=== PATIENT | male | born 1960 | race Caucasian/White ===

== ENCOUNTER 2016-06-26 11:39 | Emergency (ER) | payer MEDICARE, BC ==
[2016-06-26 13:22] VITALS: BP 102/64
--- NOTE | 2016-06-26 15:10 | UC ---
Respiratory Complaint HPI - HPI Summary HPI Summary: cough for over a week. History of lung CA in 2013, XRT and chemotherapy completed, he is in remission. For past few days, pain over left kidney. "I think it's a urinary tract infection." No fever or vomiting. Hurts to touch lumbar area, also to cough. No inc frequency of urination. Taking fluids and food well. Cough keeps him awake, dry and hacking. His MD put him on an antibiotic (?BIaxin? not sure) and a steroid taper - History of Current Complaint Chief Complaint: UCGeneralIllness Stated Complaint: FLANK PAIN,URINARY PAIN,COUGH Time Seen by Provider: 06/26/16 14:58 Hx Obtained From: Patient Onset/Duration: Gradual Onset, Lasting Weeks - 1 Timing: Constant Severity Initially: Mild Severity Currently: Moderate Character: Cough: Nonproductive Aggravating Factors: Exertion, Recumbent Position Alleviating Factors: Nothing Associated Signs And Symptoms: Positive: Dyspnea - on chronic home O2, Wheezing - off and on, chronic from lung CA and COPD, URI, Nasal Congestion. Negative: Fever - Risk Factors Pulmonary Embolism Risk Factors: Malignancy - history Cardiac Risk Factors: Hypertension, CAD Pseudomonas Risk Factors: Negative Tuberculosis Risk Factors: Negative - Allergies/Home Medications Allergies/Adverse Reactions: Allergies Allergy/AdvReac Type Severity Reaction Status Date / Time No Known Allergies Allergy Verified 06/26/16 13:27 Home Medications: Home Medications Albuterol 2.5MG/3ML (0.083%)* [Ventolin 2.5 MG/3 ML NEB.TANNER*] 2.5 mg INH Q6H PRN 06/26/16 [History Confirmed 06/26/16] Albuterol HFA INHALER* [Ventolin HFA Inhaler*] 2 puff INH Q6H PRN 06/26/16 [ History Confirmed 06/26/16] Aspirin EC Low Dose* [Ecotrin EC Low Dose*] 81 mg PO DAILY 06/26/16 [History Confirmed 06/26/16] Atorvastatin* [Lipitor 80 MG*] 80 mg PO 1700 06/26/16 [History Confirmed ] Clopidogrel TAB* [Plavix TAB*] 75 mg PO DAILY 06/26/16 [History Confirmed ] Docusate CAP* [Colace Cap*] 100 mg PO DAILY 06/26/16 [History Confirmed 06/26/16 ] Furosemide TAB* [Lasix TAB*] 20 mg PO DAILY 06/26/16 [History Confirmed 06/26/16 ] Mometasone/Formoter 100/5 MDI* [Dulera 100/5 MDI*] 2 puff INH BID 06/26/16 [ History Confirmed 06/26/16] Nitroglycerin TAB 0.4 MG* 0.4 mg SL . NEEDED PRN 06/26/16 [History Confirmed 06/26/16] Ranitidine TAB (NF) [Zantac TAB (NF)] 150 mg PO BID 06/26/16 [History Confirmed 06/26/16] Tiotropium CAP.INH* [Spiriva CAP.INH*] 1 cap.inh INH DAILY 06/26/16 [History Confirmed 06/26/16] guaiFENesin ER TAB [Mucinex*] 600 mg PO BID 06/26/16 [History Confirmed 06/26/16 ] PMH/Surg Hx/FS Hx/Imm Hx Cardiovascular History Of: Reports: Cardiac Disorders - [place], stent x1 Respiratory History Of: Reports: Asthma - Surgical History Surgical History: Yes Surgery Procedure, Year, and Place: Gall bladder 04/2016. Cardiac cath, 2015. R FX FEMUR. L4, S1 REMOVED. JAW SX. R WRIST SX. B/L KNEE SX - Family History Known Family History: Positive: Hypertension - Social History Occupation: Employed Full-time Lives: With Family Alcohol Use: None Substance Use Type: None Smoking Status (MU): Former Smoker Review of Systems Constitutional: Fatigue Skin: Negative Eyes: Negative ENT: Negative Respiratory: Shortness Of Breath, Cough Cardiovascular: Negative Gastrointestinal: Negative Genitourinary: Negative Motor: Negative Neurovascular: Negative Musculoskeletal: Myalgia - right lumbar musculature tender Neurological: Negative Psychological: Negative All Other Systems Reviewed And Are Negative: Yes Physical Exam Triage Information Reviewed: Yes Appearance: No Pain Distress, Well-Nourished, Thin Vital Signs: Initial Vital Signs Temp 98.4 F 06/26/16 13:17 Pulse 85 06/26/16 13:17 Resp 14 06/26/16 13:17 BP 102/64 06/26/16 13:17 Pulse Ox 97 06/26/16 13:17 Vital Signs Reviewed: Yes Eye Exam: Normal Neck exam: Normal Neck: Positive: Supple Respiratory Exam: Other - he is on oxygen. Decreased breath sounds lower left lung, not sure if this is chronic from XRT scarring or new due to his illness. Musculoskeletal Exam: Other - no CVA tenderness to percussion. Left lumbar muscle tenderness in one small area. Neurological Exam: Normal Psychological Exam: Normal UC Diagnostic Evaluation - Laboratory O2 Sat by Pulse Oximetry: 97 Diagnostic Studies Comment: U/A: normal, no blood or signs of infection. CXR: white out of left lung, no comparison Respiratory Course/Dx - Course Course Of Treatment: multiple attempts to call Oncology team in [place], talked to Dr. Thomas but she did not have access to old XRays. She was trying to contact the on-call fellow. Decided to send patient home as he is stable, he will call the Oncology office on Tuesday AM for further eval. - Differential Dx/Diagnosis Provider Diagnoses: pneumonia Discharge - Discharge Plan Condition: Stable Disposition: HOME Prescriptions: Amoxicillin/Clavulanate TAB* [Augmentin TAB 875*] 875 mg PO BID #20 tab Patient Education Materials: Bacterial Pneumonia (ED) Referrals: Domi Virgen [Primary Care Provider] - Additional Instructions: Call Dr. Lewis's office on Tuesday to arrange follow-up. If the Oncology fellow calls me back today and has any advice other than what we've done, I'll let you know. It appears that you have a pneumonia on the left side.
--- NOTE | 2016-06-26 15:42 | RAD ---
INDICATION: History of lung carcinoma. Radiation and chemotherapy. Coughing and decreased breath sounds at the LEFT lung base. Former tobacco use. COMPARISON: May 31, 2009 TECHNIQUE: Dual energy PA and routine lateral views of the chest were obtained. REPORT: Mild leftward rotation noted. Gross complete opacification of the LEFT hemithorax with volume loss and associated leftward mediastinal shift. Potential LEFT mid to lower lung zone cavitary areas with air-fluid levels. Compensatory hyperexpansion of the RIGHT lung with diffuse mild increased interstitial markings. No gross cardiomegaly. Unremarkable visualized RIGHT central pulmonary vasculature. RIGHT chest port tip at level of superior vena cava RIGHT atrial junction. IMPRESSION: Opacification of the LEFT lung may be secondary to tumor, atelectasis given volume loss, or pneumonia. Potential LEFT mid to lower lung zone cavitary areas with air-fluid levels which may represent necrotic tumor or abscesses.
[2016-06-26] MEDS ORDERED: Amoxicillin/Clavulanate TAB* 875 MG PO ONE (16:30)
== END 2016-06-26 16:46 | disposition home or self-care (01) ==
LOC: UCCORT 11:39
DX: J18.9 Pneumonia, unspecified organism (principal); J45.909 Unspecified asthma, uncomplicated; Z98.61 Coronary angioplasty status; Z99.81 Dependence on supplemental oxygen; Z85.118 Personal history of other malignant neoplasm of bronchus and lung; Z92.21 Personal history of antineoplastic chemotherapy; Z92.3 Personal history of irradiation; Z87.891 Personal history of nicotine dependence; Z79.82 Long term (current) use of aspirin; Z79.01 Long term (current) use of anticoagulants
CPT/HCPCS: 71020; 99202; A9270-GY; G0463